=== PATIENT | male | born 2000 | race African-American/Black ===

== ENCOUNTER 2021-09-24 10:00 | Day surgery (SDC) | payer OTHER ==
[2021-09-24 10:42] LABS: Absolute Lymphocytes (CBC) 1.9 K/uL (0.7-4.9); Hematocrit 45.7 % (39.6-49.0); Lymphocytes % 30.2 % (15.3-44.8); MCV 93.5 fL (80-100); MPV 10.2 fL (7.6-11.3); RBC Red Blood Cell Count 4.88 M/uL (4.33-5.43)
[2021-09-24] MEDS ORDERED: Ringers Lactate 1,000 ML IV ONE ×2 (10:52→12:46)
[2021-09-24 10:53] LABS: Albumin 4.3 g/dL (3.4-5.0); Bilirubin Direct 0.2 mg/dL (0-0.2); Bilirubin Total 0.9 mg/dL (0.2-1.0); Potassium 3.8 mmol/L (3.5-5.1); Protein, Total 7.3 g/dL (6.4-8.2)
[2021-09-24 10:54] LABS: SARS-CoV-2 Antigen Rapid Res Negative (Negative)
[2021-09-24] MEDS ORDERED: propofoL 200 MG/20 ML VIAL IV ONE (12:28)
[2021-09-24] MEDS ORDERED: MIDAZOLAM HCL 2 MG/2 ML INJ ONE (12:28)
[2021-09-24] MEDS ORDERED: FENTANYL CITR 100 MCG/2 ML ONE (12:29)
[2021-09-24] MEDS ORDERED: ROCURONIUM 50 MG/5 ML VIAL IV ONE (12:29)
[2021-09-24] MEDS ORDERED: LIDOCAINE 1% MPF 5 ML VIAL ONE (12:29)
[2021-09-24] MEDS ORDERED: ONDANSETRON 4 MG/2 ML VIAL ONE (12:29)
[2021-09-24] MEDS ORDERED: dexAMETHasone 4 MG/ML VIAL ONE (13:04)
[2021-09-24] MEDS ORDERED: CEFOXITIN SODIUM 1 GM/VIAL ONE (13:10)
[2021-09-24] MEDS ORDERED: GLYCOPYRROLATE 0.2 MG/ML SYR ONE ×2 (13:22→13:42)
[2021-09-24] MEDS ORDERED: EPHEDRINE SULF 50 MG/ML VIAL ONE (13:23)
[2021-09-24] MEDS ORDERED: NEOSTIGMINE 1 MG/ML -10 ML VIAL ONE (13:42)
[2021-09-24] MEDS ORDERED: KETOROLAC 30 MG/ML INJ ONE (13:44)
--- NOTE | 2021-09-24 13:52 | P.BOP ---
Preoperative diagnosis: gallbladder polyps, RUQ abd pain, sympt cholelithiasis Postoperative diagnosis: same Primary procedure: Laparoscopic cholecystectomy Estimated blood loss: <10cc Specimen: gb Findings: as above Anesthesia: General Complications: None Transferred to: Recovery Room Condition: Good
[2021-09-24] MEDS: HYDROMORPHONE HCL 1 MG/ML INJ ONE ×2 (14:15→14:20)
[2021-09-24 14:20] VITALS: O2SAT 100
[2021-09-24 15:03] VITALS: BP 131/77
[2021-09-24] MEDS ORDERED: CODEINE 30MG/APAP 300MG TAB ONE (15:04)
[2021-09-24 15:16] VITALS: TEMP 97
--- NOTE | 2021-09-25 01:33 | OP ---
Date of Procedure: 09/24/2021 Surgeon: Ari Warren MD Preoperative Diagnosis: Gallbladder polyps, right upper quadrant abdominal pain, symptomatic choleli thiasis. Postoperative Diagnosis: Gallbladder polyps, right upper quadrant abdominal pain, symptomatic cholel ithiasis. Procedure: Laparoscopic cholecystectomy. Estimated Blood Loss: Less than 10 cc. Specimen: Gallbladder. Anesthesia: General plus local. Indication: This is the case of a male who comes to us with recurrent epigastric, right upper quadra nt pain, radiating to the back. He had a little bit of nausea. He has had extensive workup from not just an endoscopy but upper endoscopy, colonoscopy, capsule endoscopies, unable to find the etiology of his pain. The GI doctor did an ultrasound that shows a thickening of the gallbladder consistent with either polyps or stones and he was sent to us for cholecystectomy. The benefits, alternatives, and risks of laparoscopic, possible open cholecystectomy was fully explained which include but not li mited to infection, bleeding, damage to adjacent structures, anesthesia complication, chronic pain, c hronic numbness, CT, and even . He also understands this may not relieve any symptoms, he might need more than one surgical intervention. He understands he should follow with the GI doctor since he already has history of Crohn disease in the family. He has signed a consent; the family is presen t, the mother is present, fully explained, and father is present. Procedure In Detail: The patient brought to the operating room, placed in supine position. Anesthes ia was done without complication. Abdominal area was prepped and draped in usual sterile fashion. M arcaine 0.5% was injected as local anesthetic, followed by sharp incision of the skin in the infraumb ilical region. Incision was carried down to fascia, which was opened under direct vision. Peritoneu m was encountered, opened under direct vision. Vicryl #1 placed inside the fascia. Criss trocar wa s carefully introduced. No bleeding was obtained. I placed 3 more trocars, 5 mm each, one of the ri ght epigastric, one in the right upper quadrant area under direct visualization. This allowed me to put a grasper in the fundus of the gallbladder. Another grasper in the infundibulum, retracting the gallbladder in the inferolateral fashion, exposing the triangle of Calot, obtaining critical view. W e inspected the liver at least anterior and extracapsular. We did not see any masses present. There is stomach, soft and compressible, and transverse colons, we did not see any lesions or any thickeni ng. So, we proceeded then to hold the gallbladder with 1 grasper in the fundus of the gallbladder, a nother grasper in the infundibulum, retracting the gallbladder in the inferolateral fashion exposing the triangle of Calot, obtaining critical view. Cystic duct and cystic artery were clearly isolated and freed circumferentially and any connection between those and the gallbladder were clearly identif ied. I proceeded to ligate those by using at least 3 clips proximal, 1 clip distal, ligation in the middle. Same was done with the cystic artery. No bile leak, no bleeding. The gallbladder was remov ed from liver using Bovie cauterizer and removed from abdominal cavity using EndoCatch through the um bilical incision. The area was inspected once again. No bile leak. No bleeding. At that moment, I proceeded to remove the trocars under direct vision, deflated pneumoperitoneum, closed the fascia wi th #1 Vicryl, irrigated the subcutaneous tissue, closed with #3-0 chromic, and the skin in subcuticul ar fashion with #3-0 chromic, and Steri-Strips on top. Sponge count, instrument counts correct. The patient tolerated the procedure well. Patient was sent to recovery in stable condition. Disposition: Home. Activity: As tolerated. No heavy lifting. Followup: Follow up in my office in 1 week or call for an appointment at [phone]. Keep area dry fo r 48 hours, then may shower. Keep Steri-Strip intact. PERRY/MICHAEL Voice ID: [id number] Report ID: [id number]
== END 2021-09-24 15:14 | disposition home or self-care (01) ==
LOC: OR 10:00
PROVIDERS: ATTEND Surgery
PROC: 0FT44ZZ Resection of Gallbladder, Percutaneous Endoscopic Approach (ICD-10-PCS; principal; 2021-09-24 12:30)
DX: K80.10 Calculus of gallbladder with chronic cholecystitis without obstruction (principal); R10.11 Right upper quadrant pain; Z20.822 Contact with and (suspected) exposure to COVID-19
CPT/HCPCS: 85025; 80048; 36415; 82150; 80076; 88304; 83690; 87811; 47562; J2704; J1100; J2710; J2250; J3010; J1170; J7120 ×2; J0694; J2405